=== PATIENT | female | born 1995 ===

== ENCOUNTER 2019-08-14 13:37 | Emergency (ER) | payer SELFPAY ==
[2019-08-14 14:01] VITALS: BP 134/85
--- NOTE | 2019-08-14 14:54 | Emergency Department Report ---
Chief Complaint: Urogenital-Female Stated Complaint: DISCHARGE Time Seen by Provider: 08/14/19 14:49 - HPI History of Present Illness: 24 y/o female who states she is not p/wq vaginal itching and discharge there is no endorsement of abdominal pain. There are no urinary symptoms. There is no abdominal tenderness, rebound or guarding. There are no peritoneal signs. belly soft exam wnl there is no facial droop. Tongue is midline. Extraocular movements are intact bilaterally. Walking with a steady gait. Speaking in full sentences. Normal appropriate thought content. 5 out of 5 strength in 4 extremities. Sensation is intact to light touch in 4 extremities. S1, S2, regular rate and rhythm. No murmurs, rubs or gallops. Breath sounds clear to auscultation bilaterally. No abdominal tenderness, rebound or guarding. No spinal tenderness. No spinal step-offs. No long bony tenderness noted. 2+ pulses noted in the bilateral upper extremities. there is no facial droop. Tongue is midline. Extraocular movements are intact bilaterally. Walking with a steady gait. Speaking in full sentences. Normal appropriate thought content. 5 out of 5 strength in 4 extremities. Sensation is intact to light touch in 4 extremities. screened out discussed the patient does not have an emergent medical condition at this time, discussed that we would be happy to see her in accordance with the procedures and policies of this department, also offered patient outpatient resources, such as the [facility], and local outpatient affordable care clinics. Vital Signs 08/14/19 14:00 Temperature 97.8 F Pulse Rate 94 H Respiratory 16 Rate Blood Pressure 134/85 O2 Sat by Pulse 98 Oximetry - Exam Vital Signs: Vital Signs 08/14/19 14:00 Temperature 97.8 F Pulse Rate 94 H Respiratory 16 Rate Blood Pressure 134/85 O2 Sat by Pulse 98 Oximetry MSE screening note: Focused history and physical exam performed. Due to findings the following was ordered: ED Disposition for MSE Clinical Impression: History of vaginal discharge, Encounter for medical screening examination Disposition: MED SCREENING EXAM-LEFT Is pt being admited?: No Does the pt Need Aspirin: No Condition: Stable Referrals: IGGY DALY MD [Staff Physician] - 3-[address] [facility] [Provider Group] - 3-5 Days [facility] [Provider Group] - 3-5 Days
== END 2019-08-14 15:20 | disposition left against medical advice (07) ==
LOC: ED 13:37
DX: N89.8 Other specified noninflammatory disorders of vagina (principal)
CPT/HCPCS: 99281